=== PATIENT | female | born 1955 | race Caucasian/White ===

== ENCOUNTER 2016-12-30 11:03 | Day surgery (SDC) | payer OTHER ==
[~2016-12-30] VITALS: Ht 162.6 cm; Wt 44.0 kg
[~2016-12-30 11:03] MED LIST: BUPIVACAINE/PF 0.5% ONE; CALC-141 PO; CYCL-259 PO; DIPH25CA61 PO; METO25TA35 PO; PANT20TA2 PO; POTA10TA PO; ZOLP-413 PO
[2016-12-30] MEDS ORDERED: LACTATED RINGERS 1,000 ML IV SCH (11:34)
[2016-12-30] MEDS ORDERED: METO25TA35 PO (11:36)
[2016-12-30 11:40] VITALS: BP 139/86
[2016-12-30] MEDS ORDERED: OXYC10TA32 PO (11:40)
[2016-12-30] MEDS ORDERED: BUPIVACAINE/PF 0.5% ONE (12:10)
[2016-12-30] MEDS ORDERED: MECL25TA4 PO (12:11)
[2016-12-30] MEDS ORDERED: MAGNESIUM PO (12:11)
[2016-12-30] MEDS ORDERED: FENTANYL PF 250 MCG/5ML ONE (12:22)
[2016-12-30] MEDS ORDERED: MIDAZOLAM 1 MG/ML, 2ML ONE (12:22)
[2016-12-30 12:53] LABS: BLOOD UREA NITROGEN 4 mg/dL (7-18)
[2016-12-30 12:57] LABS: ASPARTATE AMINO TRANSFERASE 32 U/L (15-37)
[2016-12-30] MEDS ORDERED: PHENYLEPHRINE 10 MG/ML ONE (13:06)
[2016-12-30] MEDS ORDERED: DEXAMETHASONE 4 MG/ML, 1ML ONE (13:06)
[2016-12-30] MEDS ORDERED: PROPOFOL 10 MG/ML, 20ML ONE (13:06)
[2016-12-30] MEDS ORDERED: SUCCINYLCHOLINE 20 MG/ML, 10ML ONE (13:06)
[2016-12-30] MEDS ORDERED: CEFAZOLIN 1,000 MG ONE (13:06)
[2016-12-30] MEDS ORDERED: ONDANSETRON 2MG/ML, 2ML ONE ×2 (13:06→15:38)
[2016-12-30] MEDS ORDERED: HYDROmorphone 1 MG/ML, 1ML IV PRN (14:00)
[2016-12-30] MEDS ORDERED: FENTANYL PF 100 MCG/2ML IV PRN (14:00)
[2016-12-30] MEDS ORDERED: EPHEDRINE 50 MG/ML, 1ML IVPush PRN (14:00)
[2016-12-30] MEDS ORDERED: ONDANSETRON 2MG/ML, 2ML IVPush PRN (14:00)
[2016-12-30] MEDS ORDERED: METOPROLOL 1 MG/ML, 5ML IV PRN (14:00)
[2016-12-30] MEDS ORDERED: hydrALAzine 20 MG/ML, 1ML IV PRN (14:00)
[2016-12-30] MEDS ORDERED: ALBUTEROL/IPRATROPIUM 2.5MG/0.5MG, 3 ML NPPB PRN (14:00)
[2016-12-30] MEDS ORDERED: OXYcodone 5 MG/5 ML ORAL.SOL UDC PO PRN (14:00)
[2016-12-30] MEDS ORDERED: MIDAZOLAM 1 MG/ML, 2ML IV PRN (14:00)
[2016-12-30] MEDS ORDERED: PROMETHAZINE 25 MG/ML, 1ML IV PRN (14:00)
[2016-12-30] MEDS ORDERED: FENTANYL PF 100 MCG/2ML ONE (15:15)
[2016-12-30] MEDS ORDERED: OXYcodone 5 MG/5 ML ORAL.SOL UDC ONE (15:15)
== END 2016-12-30 17:45 | disposition home or self-care (01) ==
LOC: OUT 11:03
PROVIDERS: ATTEND Orthopaedic Surgery
DX: S52.571A Other intraarticular fracture of lower end of right radius, initial encounter for closed fracture (principal); G56.01 Carpal tunnel syndrome, right upper limb; J44.9 Chronic obstructive pulmonary disease, unspecified; G40.909 Epilepsy, unspecified, not intractable, without status epilepticus; F17.210 Nicotine dependence, cigarettes, uncomplicated; K21.9 Gastro-esophageal reflux disease without esophagitis; K31.84 Gastroparesis; X58.XXXA Exposure to other specified factors, initial encounter; Y93.9 Activity, unspecified; Y92.9 Unspecified place or not applicable; Y99.9 Unspecified external cause status
CPT/HCPCS: 25609; 36415; 64721; 73100; 76000; 80053; 93005; C1713; C1762; J2250; J2405; J3010; J3490; J7120; J0690; J1100; J2704; J0330; J2370